=== PATIENT | male | born 1945 | race Caucasian/White ===

== ENCOUNTER 2017-08-17 17:45 | Emergency (ER) | payer OTHER, MEDICARE ==
[~2017-08-17] VITALS: Ht 180.3 cm; Wt 81.8 kg
[~2017-08-17 17:45] MED LIST: GLUCOSAMINE500 M1 PO; LEVAQUIN; OXYCODONE5 MG PO; SAW PALMETTO6 X SL; VITAMIN C BUFF500 MG PO; ZOFRAN 4MG T4 MG/TAB PO
[2017-08-17 17:47] VITALS: TEMP 97
[2017-08-17] MEDS ORDERED: FLOMAX 0.40.4 MG/CAP PO (17:53)
[2017-08-17] MEDS ORDERED: PROSCAR 5MG5 MG PO (17:54)
[2017-08-17 18:15] LABS: BASO % 0.5 % (0.0-2.0); EOS # 0.1 (0.0-0.7); EOS % 1.3 % (0-4.0); GRAN # 4.3 (1.4-6.5); GRAN % 57.7 % (42.2-75.2); HEMATOCRIT 43.4 % (42.0-52.0); LYMPH # 2.4 (1.2-3.4); LYMPH % 32.4 % (20.0-51.0); MEAN CELL VOLUME 88 fl (80.0-100.0); MEAN CORPUSCULAR HEMOGLOBIN 31 pg (27.0-31.0); MEAN CORPUSCULAR HGB CONC 35 g/dl (33.0-37.0); MEAN PLATELET VOLUME 9.2 fl (7.4-10.4); MONO # 0.6 (0.1-0.6); MONO % 7.7 % (1.7-9.3); PLATELET COUNT 182 K/mm3 (130-400); RED BLOOD COUNT 4.91 M/mm3 (4.20-5.60); WHITE BLOOD COUNT 7.4 K/mm3 (4.8-10.8)
[2017-08-17 18:17] LABS: INR 1.1 (0.8-3.0); PROTHROMBIN TIME 12.3 SECONDS (9.7-12.8)
[2017-08-17 18:21] LABS: ADJUSTED CALCIUM 9.1 mg/dL (8.4-10.2); ALANINE AMINOTRANSFERASE 46 U/L (21-72); ALBUMIN 3.8 gm/dL (3.5-5.0); ALKALINE PHOSPHATASE 78 U/L (50-136); ANION GAP 10 mmol/L (7-16); BILIRUBIN,TOTAL 1.3 mg/dL (0.0-1.0); BLOOD UREA NITROGEN 26 mg/dL (9-20); CALCIUM 8.9 mg/dL (8.4-10.2); CARBON DIOXIDE 26 mmol/L (22-30); CHLORIDE 107 mmol/L (98-107); GLUCOSE 132 mg/dL (74-106); POTASSIUM 3.6 mmol/L (3.4-5.0); SODIUM 142 mmol/L (137-145); TOTAL PROTEIN 6.9 gm/dL (6.4-8.2)
[2017-08-17 18:32] LABS: B-TYPE NATRIURETIC PEPTIDE 56 pg/mL (0-125); TROPONIN-I < 0.012 ng/mL (0.000-0.034)
[2017-08-17] MEDS ORDERED: NITROSTAT0.4 MG/TAB SL (21:07)
[2017-08-17 21:20] VITALS: BP 128/72; PULSE 60
== END 2017-08-17 21:22 | disposition home or self-care (01) ==
LOC: COL.ER 17:45
PROVIDERS: Emergency Medicine
DX: R07.89 Other chest pain (principal); N40.0 Benign prostatic hyperplasia without lower urinary tract symptoms
CPT/HCPCS: J7030

== ENCOUNTER → 2018-02-19 | Outpatient (CLI) | payer MEDICARE, OTHER ==
[~2018-02-19] MED LIST changes: +FLOMAX 0.40.4 MG/CAP PO; +NITROSTAT0.4 MG/TAB SL; +PROSCAR 5MG5 MG PO
== END ==
LOC: COL.RAD 02-18 10:30
DX: N50.3 Cyst of epididymis (principal)

== ENCOUNTER 2018-11-17 21:51 | Inpatient (IN) | payer MEDICARE, OTHER ==
[~2018-11-17] VITALS: Ht 175.3 cm; Wt 82.7 kg
[2018-11-17 22:12] LABS: BASO % 0.4 % (0.0-2.0); EOS # 0.1 (0.0-0.7); GRAN % 67.9 % (42.2-75.2); HEMATOCRIT 44.9 % (42.0-52.0); HEMOGLOBIN 15.9 g/dl (13.5-18.0); LYMPH % 22.1 % (20.0-51.0); MEAN CELL VOLUME 86 fl (80.0-100.0); MEAN CORPUSCULAR HEMOGLOBIN 31 pg (27.0-31.0); MEAN CORPUSCULAR HGB CONC 35 g/dl (33.0-37.0); MEAN PLATELET VOLUME 9.1 fl (7.4-10.4); MONO # 0.7 (0.1-0.6); MONO % 8.2 % (1.7-9.3); PLATELET COUNT 199 K/mm3 (130-400); RED BLOOD COUNT 5.21 M/mm3 (4.20-5.60); REDCELL DISTRIBUTION WIDTH-CV 12.3 % (11.5-14.5)
[2018-11-17 22:26] LABS: ALANINE AMINOTRANSFERASE 27 U/L (21-72); ALBUMIN 4.1 gm/dL (3.5-5.0); ALKALINE PHOSPHATASE 83 U/L (50-136); ANION GAP 9 mmol/L (7-16); AST,SGOT 29 U/L (15-37); BILIRUBIN,TOTAL 1.2 mg/dL (0.0-1.0); BLOOD UREA NITROGEN 18 mg/dL (9-20); CALCIUM 9.1 mg/dL (8.4-10.2); CARBON DIOXIDE 24 mmol/L (22-30); CHLORIDE 104 mmol/L (98-107); CREATININE, serum 0.89 mg/dL (0.66-1.25); GLUCOSE 118 mg/dL (74-106); LIPASE 217 U/L (23-300); POTASSIUM 3.7 mmol/L (3.4-5.0); SODIUM 136 mmol/L (137-145); TOTAL PROTEIN 7.6 gm/dL (6.4-8.2)
[2018-11-17 22:27] LABS: C-REACTIVE PROTEIN < 0.5 mg/dL (0.0-0.9)
[2018-11-17 22:37] LABS: TROPONIN-I < 0.012 ng/mL (0.000-0.035)
[2018-11-18] VITALS (137 sets, daily range): BP systolic 98–154; BP diastolic 52–83; PULSE 44–111; TEMP 98–98.6; O2SAT 88–99
--- NOTE | 2018-11-18 04:00 | NUR ---
Pt arrived to room 317, transferred per wheelchair by ED staff. Pt awake, a&o, cooperative c cares. Denies pain or other c/o at this time. INT patent. Tele in place. Pt oriented to room, unit policies et current POC. Questions invited et answered, pt verbalizes understanding. Pt denies needs. Call light in reach, will continue c admit process.
[2018-11-18] MEDS ORDERED: PRILOTC PO (05:03)
--- NOTE | 2018-11-18 07:00 | NUR ---
Report on to TARYN Dawson.
--- NOTE | 2018-11-18 07:30 | NUR ---
Assessment completed. VSS. Pt resting comfortably in bed, c/o no pain. Bradycardia apical rate 53 bpm. IV patent to L forearm w/ NS @ 125 mL/hr. Telemetry on. No further needs.
[2018-11-18 07:31] LABS: BASO % 0.4 % (0.0-2.0); EOS # 0.3 (0.0-0.7); GRAN # 5.9 (1.4-6.5); GRAN % 60.7 % (42.2-75.2); HEMATOCRIT 41.1 % (42.0-52.0); HEMOGLOBIN 14.4 g/dl (13.5-18.0); LYMPH # 2.6 (1.2-3.4); LYMPH % 26.8 % (20.0-51.0); MEAN CELL VOLUME 87 fl (80.0-100.0); MEAN CORPUSCULAR HEMOGLOBIN 31 pg (27.0-31.0); MEAN CORPUSCULAR HGB CONC 35 g/dl (33.0-37.0); MEAN PLATELET VOLUME 9.2 fl (7.4-10.4); MONO # 0.9 (0.1-0.6); MONO % 8.9 % (1.7-9.3); PLATELET COUNT 177 K/mm3 (130-400); RED BLOOD COUNT 4.72 M/mm3 (4.20-5.60); REDCELL DISTRIBUTION WIDTH-CV 12.4 % (11.5-14.5)
[2018-11-18 07:38] LABS: INR 1.1 (0.8-3.0); PROTHROMBIN TIME 12.2 SECONDS (9.7-12.8)
[2018-11-18 07:41] LABS: PARTIAL THROMBOPLASTIN TIME 31.8 SECONDS (26.0-37.0)
[2018-11-18 07:49] LABS: ALBUMIN 3.5 gm/dL (3.5-5.0); BILIRUBIN,TOTAL 1.5 mg/dL (0.0-1.0); CALCIUM 8.7 mg/dL (8.4-10.2); CHOLESTEROL RISK RATIO 4.7; CREATININE, serum 0.92 mg/dL (0.66-1.25); POTASSIUM 3.7 mmol/L (3.4-5.0); TOTAL PROTEIN 6.4 gm/dL (6.4-8.2)
--- NOTE | 2018-11-18 08:30 | NUR ---
Pt taken down by [facility] for lexiscan.
--- NOTE | 2018-11-18 08:30 | NUR ---
Pt taken down for jakub-scan and echo via wheelchair. Tolerated procedures well.
--- NOTE | 2018-11-18 09:38 | NUR ---
Pt alert and oriented. Pt rates pain 1/10 in right epigastric area. Pt taken down for Lexiscan this am and still there now. Pt am assessment completed. Pt has student nurse this am. Pt denies needs at this time. Pt independent in room.
--- NOTE | 2018-11-18 10:05 | NUR ---
Pt returns to room. VSS. Medications initiated. Resting in bed.
--- NOTE | 2018-11-18 11:00 | NUR ---
Ultrasound here in pt room. UA obtained and sent to lab. Assesment unchanged. C/o no pain and no further complaints at this time.
[2018-11-18 11:15] LABS: COLLECTION METHOD CLEAN CATCH
[2018-11-18 11:41] LABS: PH 8 (5-8); SQUAMOUS EPITHELIAL 0-2 /hpf; URINE APPEARANCE Clear; URINE BACTERIA None Seen /hpf; URINE BILIRUBIN Negative (NEGATIVE); URINE BLOOD Negative (NEGATIVE); URINE COLOR Straw; URINE GLUCOSE Negative (NEGATIVE); URINE KETONE Negative (NEGATIVE); URINE LEUKOCYTE ESTERASE Negative (NEGATIVE); URINE NITRATE Negative (NEGATIVE); URINE PROTEIN(semi-quant) Negative (NEGATIVE); URINE RBC 0-2 /hpf; URINE UROBILINOGEN Negative (NEGATIVE)
--- NOTE | 2018-11-18 14:15 | NUR ---
SW and SW student attended clinical rounding and met with patient to discuss discharge planning. Patient lives alone in [facility] and is independent with ADLs. Patient has a daughter that lives in [place]. Patients PCP is Dr bee and he obtains his medications from [facility]. Patient does not have any anticipated discharge needs however sw will continue to follow.
--- NOTE | 2018-11-18 17:00 | NUR ---
Pt's pain not being managed with PRN pain med Morphine. Karrie updated. Pt resting in bed in position. Pt VS monitored and respirations 20. Pt has call light in reach.
[2018-11-18 17:35] LABS: BASO % 0.3 % (0.0-2.0); EOS % 0.2 % (0-4.0); GRAN # 9.4 (1.4-6.5); GRAN % 81.8 % (42.2-75.2); HEMATOCRIT 40.9 % (42.0-52.0); HEMOGLOBIN 14.5 g/dl (13.5-18.0); LYMPH # 1.2 (1.2-3.4); LYMPH % 10.6 % (20.0-51.0); MEAN CELL VOLUME 86 fl (80.0-100.0); MEAN CORPUSCULAR HEMOGLOBIN 31 pg (27.0-31.0); MEAN CORPUSCULAR HGB CONC 36 g/dl (33.0-37.0); MEAN PLATELET VOLUME 9.2 fl (7.4-10.4); MONO # 0.8 (0.1-0.6); MONO % 6.6 % (1.7-9.3); PLATELET COUNT 180 K/mm3 (130-400); RED BLOOD COUNT 4.74 M/mm3 (4.20-5.60); REDCELL DISTRIBUTION WIDTH-CV 12.5 % (11.5-14.5)
[2018-11-18 17:46] LABS: ALANINE AMINOTRANSFERASE 27 U/L (21-72); ALBUMIN 3.6 gm/dL (3.5-5.0); ALKALINE PHOSPHATASE 82 U/L (50-136); ANION GAP 7 mmol/L (7-16); AST,SGOT 24 U/L (15-37); BILIRUBIN,TOTAL 2.1 mg/dL (0.0-1.0); BLOOD UREA NITROGEN 16 mg/dL (9-20); CALCIUM 8.5 mg/dL (8.4-10.2); CARBON DIOXIDE 25 mmol/L (22-30); CHLORIDE 106 mmol/L (98-107); CREATININE, serum 0.95 mg/dL (0.66-1.25); GLUCOSE 128 mg/dL (74-106); SODIUM 138 mmol/L (137-145); TOTAL PROTEIN 6.6 gm/dL (6.4-8.2)
[2018-11-18 18:06] LABS: TROPONIN-I < 0.012 ng/mL (0.000-0.035)
--- NOTE | 2018-11-18 18:30 | NUR ---
Pt alert and oriented and started on CERTIFIED CODER morphine pump. Pt VS monitored and respiration around 20. Pt pain rated at 5/10. Pt remains in bed in position and pain in abdomen noted. Pt seen by Dr. Morris and being transferred to ICU when bed is ready. Pt aware and has call light in reach. Report given to Sallie in ICU and Gloria on medical.
--- NOTE | 2018-11-18 20:40 | NUR ---
Pt report received from Gloria [employer].
--- NOTE | 2018-11-18 21:27 | NUR ---
Pt arrived to ICU05 with personal belonings. Pt was able to transfer from one bed to the other by scooting.
--- NOTE | 2018-11-18 21:30 | NUR ---
This nurse arrived to medical floor room # 317. Pt was resting in bed talking with medical floor nurse at this time, in a semi fowlers position. Pt sat on the edge of the bed and reported feeling nauseous. Pt shortly following began to produce yellow colored emesis in small amounts into a kidney basin. Zofran was administered with mild results, pt rested back into right sided laying position in bed with eyes closed. Alcohol swab was reported to help with nausea when placed for short periods of time under nose. sheet metal duct worker supervisor called for assistance to tx pt via bed with IV pole of Morphine CASHIER WRAPPER pump and NS down to ICU.
--- NOTE | 2018-11-18 21:39 | NUR ---
PT update report given to ICU; PT transferred to ICU via bed x2 nurse transfer at approximately 2119; chart and all personal belongings transferred with PT at time of move. CDA
[2018-11-19] VITALS (371 sets, daily range): BP systolic 92; BP diastolic 49; PULSE 49; TEMP 98; O2SAT 91–100
[2018-11-20] VITALS (12 sets, daily range): BP systolic 111; BP diastolic 58; PULSE 63; TEMP 98.6; O2SAT 57–93
[2018-11-20 12:04] LABS: BASO % 0.2 % (0.0-2.0); EOS % 0.2 % (0-4.0); GRAN # 10.1 (1.4-6.5); GRAN % 79.1 % (42.2-75.2); HEMATOCRIT 38.4 % (42.0-52.0); HEMOGLOBIN 13.2 g/dl (13.5-18.0); LYMPH # 1.3 (1.2-3.4); LYMPH % 9.8 % (20.0-51.0); MEAN CELL VOLUME 89 fl (80.0-100.0); MEAN CORPUSCULAR HEMOGLOBIN 31 pg (27.0-31.0); MEAN CORPUSCULAR HGB CONC 34 g/dl (33.0-37.0); MEAN PLATELET VOLUME 9.4 fl (7.4-10.4); MONO # 1.3 (0.1-0.6); MONO % 10.3 % (1.7-9.3); PLATELET COUNT 163 K/mm3 (130-400); RED BLOOD COUNT 4.33 M/mm3 (4.20-5.60); REDCELL DISTRIBUTION WIDTH-CV 12.8 % (11.5-14.5)
[2018-11-20 14:02] LABS: CALCIUM 8.2 mg/dL (8.4-10.2); CREATININE, serum 1.03 mg/dL (0.66-1.25); POTASSIUM 3.8 mmol/L (3.4-5.0)
[2018-11-20] MEDS ORDERED: LIPITOR20 MG PO (16:06)
[2018-11-20] MEDS ORDERED: NORCO 325 MG-51 TAB PO (16:06)
[2018-11-20] MEDS ORDERED: ZOFRAN ODT4 MG PO (16:07)
[2018-11-20 16:10] LABS: CREATININE, serum 1.03 mg/dL (0.66-1.25)
[2018-11-20 16:11] LABS: ALBUMIN 3.4 gm/dL (3.5-5.0); CALCIUM 8.2 mg/dL (8.4-10.2); POTASSIUM 3.8 mmol/L (3.4-5.0); TOTAL PROTEIN 6.4 gm/dL (6.4-8.2)
[2018-11-20 16:42] LABS: BASO % 0.2 % (0.0-2.0); EOS # 0.1 (0.0-0.7); EOS % 0.4 % (0-4.0); GRAN # 9.7 (1.4-6.5); GRAN % 75.1 % (42.2-75.2); HEMATOCRIT 39.3 % (42.0-52.0); HEMOGLOBIN 13.5 g/dl (13.5-18.0); LYMPH # 1.8 (1.2-3.4); LYMPH % 14.1 % (20.0-51.0); MEAN CELL VOLUME 88 fl (80.0-100.0); MEAN CORPUSCULAR HEMOGLOBIN 30 pg (27.0-31.0); MEAN CORPUSCULAR HGB CONC 34 g/dl (33.0-37.0); MEAN PLATELET VOLUME 9.3 fl (7.4-10.4); MONO # 1.2 (0.1-0.6); MONO % 9.6 % (1.7-9.3); PLATELET COUNT 168 K/mm3 (130-400); RED BLOOD COUNT 4.45 M/mm3 (4.20-5.60); REDCELL DISTRIBUTION WIDTH-CV 12.7 % (11.5-14.5)
== END 2018-11-20 17:20 | disposition home or self-care (01) | DRG 419 ==
LOC: COL.ER 21:51 → MEDICAL 11-18 02:43 → ICU 11-18 21:38 → MEDICAL 11-20 02:30
PROVIDERS: Emergency Medicine; Nurse Practitioner Family; Physician Assistant; Surgery
PROC: 4A023N8 Measurement of Cardiac Sampling and Pressure, Bilateral, Percutaneous Approach (ICD-10-PCS; 2018-11-19)
PROC: B2111ZZ Fluoroscopy of Multiple Coronary Arteries using Low Osmolar Contrast (ICD-10-PCS; 2018-11-19)
PROC: 0FT44ZZ Resection of Gallbladder, Percutaneous Endoscopic Approach (ICD-10-PCS; principal; 2018-11-20 07:30)
DX: K80.00 Calculus of gallbladder with acute cholecystitis without obstruction (principal); K21.9 Gastro-esophageal reflux disease without esophagitis; N40.0 Benign prostatic hyperplasia without lower urinary tract symptoms; Z82.49 Family history of ischemic heart disease and other diseases of the circulatory system; I45.10 Unspecified right bundle-branch block; R00.1 Bradycardia, unspecified
CPT/HCPCS: 99222-AI; 99239; A4216; A9500; C1760; C1894; J0690; J0696; J1100; J1650; J1800; J1885; J2270; J2405; J2704; J2785; J3010; J7030; J7120; Q9967